=== PATIENT | female | born 1940 | race American Indian/Alaskan Native ===

== ENCOUNTER 2017-08-19 13:32 | Observation (INO) | payer MEDICARE, OTHER ==
--- NOTE | 2017-08-19 14:04 | ED PDOC ---
Arrival/HPI - General Chief Complaint: Chest Pain Time Seen by Provider: 08/19/17 13:42 Historian: Patient - History of Present Illness Narrative History of Present Illness (Text): 08/19/17 14:04 A 77 year old female, whose past medical history includes blood clots (on Coumadin) and left hip replacement two months ago, presents to the emergency department complaining of chest pain for a week. Patient reports stabbing pain. Notes some palpitations at night, shortness of breath for the past couple of days and right leg pain. Patient noted to have an US done on 07/29/17, that was negative for DVT and reports similar pain. Patient denies any other complaints at this time. PMD: Dr. Jeffries Rocket Motor Mechanic: Dr. Brown Time/Duration: 1 week, < week Symptom Onset: Sudden Symptom Course: Unchanged Quality: Stabbing Activities at Onset: Rest Context: Home Past Medical History - Provider Review Nursing Documentation Reviewed: Yes - Infectious Disease Hx of Infectious Diseases: None - Cardiac Hx Atrial Fibrillation: Yes - Pulmonary Hx Pulmonary Embolism: Yes - Neurological Other/Comment: Fibromyalgia - Hematological/Oncological Hx Blood Transfusions: No Hx Blood Transfusion Reaction: No - Musculoskeletal/Rheumatological Hx Musculoskeletal Disorders: Yes (FIBROMYALGIA-LEG PAINS WHEN WALKING) Hx Arthritis: Yes Other/Comment: Sciatica - Gastrointestinal Other/Comment: bleeding ulcers x 7 last one 12 yrs ago multiple blood transfusions - Psychiatric Hx Substance Use: No - Surgical History Hx Orthopedic Surgery: Yes (Left Hip replacement) - Anesthesia Hx Anesthesia Reactions: No Hx Malignant Hyperthermia: No - Suicidal Assessment Feels Threatened In Home Enviroment: No Family/Social History - Physician Review Nursing Documentation Reviewed: Yes Family/Social History: No Known Family HX Smoking Status: Never Smoked Hx Alcohol Use: No Hx Substance Use: No Hx Substance Use Treatment: No Allergies/Home Meds Allergies/Adverse Reactions: Allergies meperidine Allergy (Verified 08/19/17 13:41) CARDIAC ARREST Home Medications: Home Meds Medication Instructions Recorded Confirmed Warfarin [Coumadin] 7 mg PO DAILY 08/19/17 08/19/17 Review of Systems - Physician Review All systems were reviewed & negative as marked: Yes - Review of Systems Respiratory: SOB Cardiovascular: Chest Pain, Palpitations Musculoskeletal: Other (R leg pain) Physical Exam Vital Signs Reviewed: Yes Vital Signs Temp Pulse Resp BP Pulse Ox 08/19/17 16:01 64 18 100/60 100 08/19/17 13:45 97.7 F 73 16 112/63 96 Temperature: Afebrile Blood Pressure: Normal Pulse: Regular Respiratory Rate: Normal Appearance: Positive for: Well-Appearing, Non-Toxic, Comfortable Pain Distress: None Mental Status: Positive for: Alert and Oriented X 3 - Systems Exam Head: Present: Atraumatic, Normocephalic Pupils: Present: PERRL Extroacular Muscles: Present: EOMI Conjunctiva: Present: Normal Mouth: Present: Moist Mucous Membranes Neck: Present: Normal Range of Motion Respiratory/Chest: Present: Clear to Auscultation, Good Air Exchange. No: Respiratory Distress, Accessory Muscle Use Cardiovascular: Present: Regular Rate and Rhythm, Normal S1, S2. No: Murmurs Abdomen: Present: Normal Bowel Sounds. No: Tenderness, Distention, Peritoneal Signs Back: Present: Normal Inspection Upper Extremity: Present: Normal Inspection. No: Cyanosis, Edema Lower Extremity: Present: Normal Inspection. No: Edema Neurological: Present: GCS=15, CN II-XII Intact, Speech Normal Skin: Present: Warm, Dry, Normal Color. No: Rashes Psychiatric: Present: Alert, Oriented x 3, Normal Insight, Normal Concentration Medical Decision Making ED Course and Treatment: 08/19/17 14:02 Impression: A 77 year old female with chest pain, shortness of breath and palpitations. Plan: -- EKG -- chest xray -- labs -- Urinalysis -- Reassess and disposition Prior Visits: Notes and results from previous visits were reviewed. Patient was last seen in the emergency department on 12/02/15 for evaluation of chest pain. Progress Notes: EKG: Ordered, reviewed, and independently interpreted the EKG. Rate : 74 BPM Rhythm : NSR Interpretation : incomplete right bundle branch block, no change from previous EKG Patient declines Aspirin due to bleeding ulcers. 08/19/17 14:57 chest xray: Creator : Livan Alexandra MD IMPRESSION: No active disease. 08/19/17 16:42 pt with atypical pain, however previous cath shows mild cad, and os stenosis. discussed with dr singletary. accepts for obs. - Lab Interpretations Lab Results: 08/19/17 14:20 08/19/17 14:20 Lab Results 08/19/17 14:20: Sodium 137, Potassium 4.3, Chloride 97 L, Carbon Dioxide 31, Anion Gap 13, BUN 22 H, Creatinine 1.3 H, Est GFR ( Amer) 48, Est GFR ( Non-Af Amer) 40, Random Glucose 111 H, Calcium 9.8, Magnesium 2.0, Total Bilirubin 0.6, AST 26, ALT 30, Alkaline Phosphatase 102, Lactate Dehydrogenase 459, Total Creatine Kinase 73, Troponin I < 0.01, Total Protein 7.4, Albumin 4.0 , Globulin 3.5, Albumin/Globulin Ratio 1.2 08/19/17 14:20: Urine Color Light yellow, Urine Appearance Clear, Urine pH 6.5, Ur Specific [place] 1.015, Urine Protein Negative, Urine Glucose (UA) Negative, Urine Ketones Negative, Urine Blood Negative, Urine Nitrate Negative, Urine Bilirubin Negative, Urine Urobilinogen 0.2, Ur Leukocyte Esterase Negative 08/19/17 14:20: PT 30.4 H, INR 2.73 H, APTT 35.9 08/19/17 14:20: WBC 4.3 L, RBC 3.89, Hgb 9.4 L, Hct 30.2 L, MCV 77.6 L, MCH 24.2 L, MCHC 31.1, RDW 16.9 H, Plt Count 259, MPV 9.4, Gran % 53.0, Lymph % ( Auto) 31.0, [place] % (Auto) 9.0 H, Eos % (Auto) 6.5 H, Baso % (Auto) 0.5, Gran # 2.29, Lymph # 1.3, [place] # 0.4, Eos # 0.3, Baso # 0.02 I have reviewed the lab results: Yes - RAD Interpretation Radiology Orders: 08/19/17 13:55 CHEST PORTABLE [RAD] Stat 08/19/17 14:48 DUPLEX LOWER EXTRM VEIN BILAT [US] Stat - EKG Interpretation Interpreted by ED Physician: Yes Type: 12 lead EKG - Scribe Statement The provider has reviewed the documentation as recorded by the Taniaibjoes Lozada Provider Scribe Attestation: All medical record entries made by the Scribe were at my direction and personally dictated by me. I have reviewed the chart and agree that the record accurately reflects my personal performance of the history, physical exam, medical decision making, and the department course for this patient. I have also personally directed, reviewed, and agree with the discharge instructions and disposition. Disposition/Present on Arrival - Present on Arrival Any Indicators Present on Arrival: No History of DVT/PE: No History of Uncontrolled Diabetes: No Urinary Catheter: No History of Decub. Ulcer: No History Surgical Site Infection Following: None - Disposition Have Diagnosis and Disposition been Completed?: Yes Diagnosis: Chest pain Disposition: HOSPITALIZED Disposition Time: 16:43 Condition: STABLE Discharge Instructions (ExitCare): Chest Pain (ED) Referrals: Meet Jeffries MD [Primary Care Provider] - Follow up with primary Forms: [employer] ([place])
[2017-08-19 14:36] LABS: BASO # 0.02 K/mm3 (0.0-2.0); BASO % 0.5 % (0.0-3.0); EOS # 0.3 (0.0-0.7); EOS % 6.5 % (1.5-5.0); GRAN # 2.29 (1.4-6.5); HEMATOCRIT 30.2 % (36.0-48.0); LYMPH # 1.3 (1.2-3.4); MEAN CELL VOLUME 77.6 fl (80.0-105.0); MEAN CORPUSCULAR HEMOGLOBIN 24.2 pg (25.0-35.0); MEAN CORPUSCULAR HGB CONC 31.1 g/dl (31.0-37.0); MEAN PLATELET VOLUME 9.4 fl (7.0-11.0); MONO # 0.4 (0.1-0.6); RED CELL DISTRIBUTION WIDTH 16.9 % (11.5-14.5); WHITE BLOOD COUNT 4.3 10^3/ul (4.5-11.0)
[2017-08-19 14:37] LABS: PH,URINE 6.5 (4.7-8.0); URINE BILIRUBIN NEGATIVE (NEGATIVE); URINE BLOOD NEGATIVE (NEGATIVE); URINE GLUCOSE (UA) NEGATIVE (NEGATIVE); URINE KETONE NEGATIVE (NEGATIVE); URINE LEUKOCYTE ESTERASE NEGATIVE Leu/uL (NEGATIVE); URINE PROTEIN NEGATIVE mg/dL (<30 mg/dL); URINE UROBILINOGEN 0.2 E.U./dL (<1 E.U./dL)
[2017-08-19 14:40] LABS: ALB/GLOB RATIO 1.2 (1.1-1.8); ALKALINE PHOSPHATASE 102 U/L (38-126); ALT/SGPT 30 U/L (7-56); AST/SGOT 26 U/L (14-36); BILIRUBIN,TOTAL 0.6 mg/dL (0.2-1.3); BLOOD UREA NITROGEN 22 mg/dL (7-21); CALCIUM 9.8 mg/dL (8.4-10.5); CARBON DIOXIDE 31 mmol/L (21-33); CHLORIDE 97 mmol/L (98-107); GFR AFRICAN-AMERICAN 48; GLUCOSE,RANDOM 111 mg/dL (70-110); POTASSIUM 4.3 mmol/L (3.6-5.0); SODIUM 137 mmol/L (132-148); TOTAL PROTEIN 7.4 g/dL (5.8-8.3); URINE APPEARANCE CLEAR (CLEAR); URINE COLOR LIGHT YELLOW (YELLOW)
[2017-08-19 14:43] LABS: INR 2.73 (0.93-1.08)
[2017-08-19 14:44] LABS: PARTIAL THROMBOPLASTIN TIME 35.9 Seconds (25.1-36.5)
[2017-08-19 14:52] LABS: TROPONIN I < 0.01 ng/mL
--- NOTE | 2017-08-19 14:56 | RAD ---
HISTORY: cp COMPARISON: 12/02/2015 FINDINGS: LUNGS: No active pulmonary disease. PLEURA: Nonspecific elevation of right hemidiaphragm. No pleural effusion. No pneumothorax. CARDIOVASCULAR: Normal. OSSEOUS STRUCTURES: No significant abnormalities. VISUALIZED UPPER ABDOMEN: Normal. OTHER FINDINGS: None. IMPRESSION: No active disease.
[2017-08-19 15:51] VITALS: BMI 29.6
--- NOTE | 2017-08-19 17:17 | US ---
HISTORY: Leg pain and swelling. Evaluate for DVT PHYSICIAN(S): Livan Stauffer MD. TECHNIQUE: Duplex sonography and color-flow Doppler with graded compression were used to evaluate the deep venous systems of both lower extremities. FINDINGS: The visualized deep venous systems of both lower extremities are sonographically normal and compressible. Normal wave forms and augmentation are seen. There is no sonographic evidence for deep venous thrombosis in the visualized segments of both lower extremities. There is a 1.1 x 3.8 cm fluid collection a right popliteal fossa, consistent with a Owens cyst. IMPRESSION: No sonographic evidence for deep venous thrombosis in the visualized segments of both lower extremities.
[2017-08-19 18:27] VITALS: O2SAT 98
[2017-08-19] MEDS: Metoprolol Succinate 25 mg XL Tab PO SCH ×2 (18:39→18:44)
[2017-08-19] MEDS: Oxycodone/Acetaminophen 5/325 mg Tab PO PRN (19:04)
[2017-08-19 21:44] LABS: CHOLESTEROL 141 mg/dL (130-200)
[2017-08-19 21:56] LABS: TROPONIN I < 0.01 ng/mL
--- NOTE | 2017-08-20 04:13 | HP ---
HISTORY OF PRESENT ILLNESS: The patient is a 77-year-old, known to me from previous admission, came to emergency room because of increasing intermittent chest pain going on for a few days, got worse yesterday, associated with some dizziness and shortness of breath. Patient states that chest pain is stabbing with some palpitation and shortness of breath although it has been going on for almost more than a week and she did have right leg pain. Patient has bilateral leg Dopplers done on 07/29 and was negative. PAST MEDICAL HISTORY: Significant for, 1. Hypotension. 2. History of DVT. 3. History of paroxysmal AFib, on anticoagulation. 4. Hypertension. 5. Fibromyalgia. 6. Neuropathy. 7. History of congestive heart failure. 8. History of rheumatic fever in remote past. 9. Status post cardiac cath and had blockages but was not stented. ALLERGIES: SHE IS ALLERGIC TO MEPERIDINE. SOCIAL HISTORY: She lives with her daughter. Denies smoking, drinking, or alcohol use. a couple of years ago. MEDICATIONS AT HOME: She is on Coumadin 7 mg daily. REVIEW OF SYSTEMS: Significant for chest pain associated with palpitation and shortness of breath. PHYSICAL EXAMINATION: GENERAL: The patient is awake, alert, oriented, communicative. VITAL SIGNS: She is afebrile, pulse 64, respirations 18, blood pressure 100/60. LUNGS: Bilaterally fair airflow. No rhonchi or crackle. HEART: S1 and S2 audible. Irregular, rate controlled. ABDOMEN: Soft, nontender, no rebound, no guarding. NEUROLOGICALLY: The patient is awake, alert, oriented, communicative. LABORATORY DATA: WBC is 4.3, hemoglobin 9.4, hematocrit 30.2, platelets of 259. PT 13.4, INR 2.73. Chemistry: Sodium 137, potassium 4.3, chloride 97, CO2 of 31, BUN 22, creatinine 1.3, blood sugar 111. LFTs are within normal limits. Urinalysis is unremarkable. Bilateral leg Doppler done today is negative for DVT. X-ray, chest, no active disease. ASSESSMENT AND PLAN: 1. Chest pain, rule out underlying coronary artery disease. 2. Paroxysmal atrial fibrillation. 3. Hypertension. 4. Hyperlipidemia. PLAN: Start the patient on small dose of beta bonnie. She is currently on Coumadin, we will continue that. We will follow up cardiac enzymes. Dr. Brown or Dr. Lawson to evaluate the patient. We will follow up lipid profile in the a.m. We will see the patient in a.m. Angela Hernandez MD
[2017-08-20 06:59] LABS: FREE T4 1.2 ng/dL (0.78-2.19)
[2017-08-20 07:13] LABS: THYROID STIMULATING HORMONE 0.91 mIU/mL (0.46-4.68)
[2017-08-20 07:44] LABS: ALB/GLOB RATIO 1.2 (1.1-1.8); BILIRUBIN,TOTAL 0.4 mg/dL (0.2-1.3); CALCIUM 9.3 mg/dL (8.4-10.5); POTASSIUM 4.1 mmol/L (3.6-5.0); TOTAL PROTEIN 6.8 g/dL (5.8-8.3)
[2017-08-20] MEDS: Metoprolol Succinate 25 mg XL Tab PO SCH (08:13)
[2017-08-20] MEDS: Oxycodone/Acetaminophen 5/325 mg Tab PO PRN (08:55)
--- NOTE | 2017-08-20 09:43 | CARD ---
APPROVED REPORT EKG Measurement Heart [id number] <Conclusion> Normal sinus rhythm Incomplete right bundle branch block Minimal voltage criteria for LVH, may be normal variant NSSTW changes No change
[2017-08-20 12:35] VITALS: RESP 20
--- NOTE | 2017-08-20 12:47 | CARD ---
APPROVED REPORT EKG Measurement Heart [id number] <Conclusion> Normal sinus rhythm RVCD LVH by voltage No change
[2017-08-20] MEDS ORDERED: Bupivacaine 0.25% Inj(30mL) IJ ONE (14:31)
[2017-08-20] MEDS ORDERED: MethylPREDNISolone Depo 80 mg/ml (5 ml) Inj INJ ONE (14:32)
--- NOTE | 2017-08-20 15:26 | RAD ---
PROCEDURE: Right Knee Radiographs. HISTORY: pain rt knee COMPARISON: None. FINDINGS: BONES: No fracture. JOINTS: Tricompartmental narrowing with degenerative spurring JOINT EFFUSION: None. OTHER FINDINGS: None. IMPRESSION: No demonstrated fracture or dislocation. Tricompartmental degenerative changes.
--- NOTE | 2017-08-20 17:40 | CON ---
DATE: 08/20/2017 INDICATIONS: Chest pain. HISTORY OF PRESENT ILLNESS: This is a 77-year-old woman known to me with admission yesterday through the Emergency Room when she complained of a stabbing type chest pain occurring on and off several days and worse yesterday. It was associated with shortness of breath and some palpitations. She has recently undergone left total hip replacement. She was recently found to have a Owens's cyst in the right knee. She is undergoing evaluation for this. She has developed difficulty walking because of pain in the right leg and recent left hip surgery. There is no orthopnea, PND, syncope, presyncope, lightheadedness, dizziness, vertigo, fever, chills, cough, sputum production, hemoptysis, abdominal pain, nausea, vomiting, diarrhea, constipation or melena. PAST MEDICAL HISTORY: Notable for coronary artery disease. She underwent cardiac catheterization most recently in 12/2015. At that time, she had a severe lesion in the ostium of the second diagonal branch. This was treated medically. She had LV ejection fraction of about 50% and mild diffuse coronary artery disease elsewhere. She has a history of paroxysmal atrial fibrillation and DVT. She is on chronic Coumadin therapy. She has a history of hypertension, gallbladder surgery, peripheral neuropathy, fibromyalgia, and PAD. MEDICATIONS: At the time of admission, her medications include warfarin 7 mg daily. ALLERGIES: SHE HAS AN ALLERGY TO DEMEROL. SOCIAL HISTORY: She lives at home. She ambulates with a cane currently. She is undergoing physical therapy. She does not smoke. She does not drink alcohol significantly. FAMILY HISTORY: Noncontributory. REVIEW OF SYSTEMS: A 10-point review of systems, otherwise, unremarkable except as noted above. PHYSICAL EXAMINATION: GENERAL: She is a well-developed woman, lying in bed on Telemetry, in no acute distress. VITAL SIGNS: Notable for sinus rhythm at 75 beats per minute. She is afebrile. Blood pressure 99/58 to 135/73, respirations 18 to 19, and O2 sat 98% on room air. HEENT: Reveals no neck vein distention, thyromegaly or carotid bruits. Mucous membranes are moist. Conjunctivae are pink. NECK: Supple. LUNG: Lung haynes clear. HEART: Revealed normal first and second heart sounds. There is a soft systolic murmur along the left sternal border. ABDOMEN: Soft. Bowel sounds present. No mass, organomegaly, tenderness, rebound or guarding. No CVA tenderness. No palpable abdominal aortic aneurysm. EXTREMITIES: Revealed no cyanosis, clubbing or edema. NEUROLOGIC: She is awake, alert, and oriented. SKIN: Warm and dry. No rashes or cellulitis. PSYCHIATRIC: Normal as to mood and affect. LABORATORY DATA: EKG demonstrated regular sinus rhythm, poor R-wave progression, right ventricular conduction delay. No acute changes. No change from her previous EKG. A chest x-ray revealed no active disease. Extremity ultrasound revealed no DVT. White count 4300, hemoglobin 9.4, hematocrit 30.2, and platelet count normal. INR 2.73, and PTT 35.9. Electrolytes, BUN, creatinine, and blood sugar unremarkable, creatinine today 1.2 and magnesium 2.0. LFTs unremarkable. CK 73. Three troponins are negative. Total cholesterol 141, LDL 60, and triglycerides 149. Free T4 and TSH are normal. Urinalysis is unremarkable. IMPRESSION AND PLAN: Juany Corrigan is a 77-year-old woman complaining of a stabbing type chest pain with known coronary artery disease as described in the 12/2015 cardiac catheterization report including a severe lesion in a second diagonal branch, this was treated medically. The troponins are negative. The first EKG was unchanged. I will repeat an EKG this morning. She will having an orthopedic evaluation for the Owens's cyst and her status post left total hip replacement status. If there is no further chest pain, we can consider early discharge with plans for an outpatient nuclear stress test to be arranged in the very near future. If chest pain continues, we might consider direct cardiac catheterization. She has been started on metoprolol and aspirin. Her INR will be monitored. Warfarin will be continued. She can be out of bed. I will follow along with you. I will make additional recommendations based on her clinical course. Luis Manuel Brown MD MTDD
[2017-08-20 17:46] VITALS: BP 155/73; PULSE 78; TEMP 98
--- NOTE | 2017-08-21 01:28 | CON ---
DATE: 08/20/2017 REASON FOR CONSULTATION: Right knee pain. HISTORY OF PRESENT ILLNESS: This is a 77-year-old female, who came in with a history of prior right knee arthritis who was admitted to the hospital with admitting diagnosis of chest pain. Patient subsequently complained of right knee pain. She was getting physical therapy for a left total hip replacement and developed some increasing pain in the right knee. She denies any history of trauma. She states that she previously had a cortisone injection in May of this year which did give her some relief. PHYSICAL EXAMINATION GENERAL: This is a female in no apparent distress. She is awake, alert, and oriented x3 EXTREMITIES: Evaluation of right lower extremity shows no obvious deformity. Evaluation of right knee shows no obvious swelling. She does have some posterior joint line tenderness to palpation. She also has some medial joint line tenderness to palpation. Her thigh and calf are soft and nontender. She is tolerating active range of motion from about 0-100 degrees. She is grossly stable with varus valgus stress. Her thigh and calf are soft and nontender. X-rays of the right knee show no obvious fractures or dislocations, but some degenerative changes, these are non-weight bearing views. She also had an ultrasound in the right lower extremity which was consistent with 1 x 3.8 cm popliteal cyst. No evidence of DVT was appreciated. IMPRESSION: Right knee arthritis. PLAN: At this point, we discussed the treatment options. We are going to try another steroid injection to see if this helps to relieve her pain. Risks and benefits were discussed and she wants to proceed. The right knee was prepped sterilely and approximately 40 mg of Depo-Medrol with 2 ml of Marcaine was injected. She tolerated the procedure well. At this time, the plan is for her to be discharged and she can followup as an outpatient in the next 2 weeks'. Kevin Porter MD
--- NOTE | 2017-08-21 14:53 | DS ---
HISTORY OF PRESENT ILLNESS: The patient is a 77-year-old, seen and examined, no more chest pain, no shortness of breath. Does complain of right knee pain, radiating to right upper ramos. The patient recently had left hip replacement. PHYSICAL EXAMINATION: GENERAL: She is awake, alert, oriented, and communicative. VITAL SIGNS: She is afebrile, pulse 88, respirations 20, blood pressure 110/69. LUNGS: Bilateral fair airflow. No rhonchi or crackles. HEART: S1 and S2 audible. ABDOMEN: Soft and nontender. No rebound. No guarding. NEUROLOGICAL: The patient is awake, alert, oriented, able to communicate. LABORATORY DATA: Sodium 137, potassium 4.1, chloride 100, CO2 of 30, BUN 23, creatinine 1.2, blood sugar 121. Hemoglobin A1c is 6.4. Urinalysis is unremarkable. X-ray of the knee shows no fracture or dislocation, tricompartmental degenerative changes. ASSESSMENT: 1. Noncardiac chest pain. 2. Right knee Owens cyst. 3. History of deep vein thrombosis. PLAN: The patient is being seen by Dr. Porter, has steroid injection given, encouraged ambulation. The patient is stable, ambulatory. She can be discharged and she can follow up with Dr. Brown as an outpatient. At this point, there is no evidence of acute coronary ischemia. Her 3 troponins were negative. Angela Hernandez MD
== END 2017-08-20 19:45 | disposition home or self-care (01) ==
LOC: ED 13:32 → ERH 16:30 → 2RSO 18:19
PROVIDERS: ADMIT Internal Medicine; ATTEND Internal Medicine
DX: R07.9 Chest pain, unspecified (principal); I48.0 Paroxysmal atrial fibrillation; I11.0 Hypertensive heart disease with heart failure; I50.9 Heart failure, unspecified; M17.11 Unilateral primary osteoarthritis, right knee; E78.5 Hyperlipidemia, unspecified; I25.10 Atherosclerotic heart disease of native coronary artery without angina pectoris; M79.7 Fibromyalgia; G62.9 Polyneuropathy, unspecified; Z86.718 Personal history of other venous thrombosis and embolism; Z96.642 Presence of left artificial hip joint; Z79.01 Long term (current) use of anticoagulants

== ENCOUNTER 2018-02-21 15:03 | Observation (INO) | payer MEDICARE, OTHER ==
--- NOTE | 2018-02-21 16:17 | ED PDOC ---
Arrival/HPI - General Chief Complaint: Chest Pain Time Seen by Provider: 02/21/18 15:30 Historian: Patient - History of Present Illness Narrative History of Present Illness (Text): 02/21/18 15:37 77 year old male, with past medical history of CAD, presents to the Emergency department complaining of chest pain since 1 o' clock this afternoon. Patient informs pain began yesterday and has worsened today prompting her to visit the Emergency. Patient cannot characterize the pain but states that it radiates to her throat and returns back to her chest. Patient denies any fever, chills, nausea, vomiting, diarrhea, abdominal pain, shortness of breath or any other complaints. PMD: Dr. Jeffries Account Service Representative: Dr. Brown Time/Duration: 24 hours Symptom Onset: Gradual Symptom Course: Unchanged Quality: Aching Activities at Onset: Light Context: Home Past Medical History - Provider Review Nursing Documentation Reviewed: Yes - Infectious Disease Hx of Infectious Diseases: None - Cardiac Hx Cardiac Disorders: Yes - Pulmonary Hx Pulmonary Embolism: Yes - Neurological Other/Comment: Fibromyalgia - Hematological/Oncological Hx Blood Transfusions: No Hx Blood Transfusion Reaction: No - Musculoskeletal/Rheumatological Hx Falls: No - Gastrointestinal Other/Comment: bleeding ulcers x 7 last one 12 yrs ago multiple blood transfusions - Psychiatric Hx Emotional Abuse: No Hx Physical Abuse: No Hx Substance Use: No - Surgical History Hx Orthopedic Surgery: Yes (Left Hip replacement) - Anesthesia Hx Anesthesia Reactions: No Hx Malignant Hyperthermia: No - Suicidal Assessment Feels Threatened In Home Enviroment: No Family/Social History - Physician Review Nursing Documentation Reviewed: Yes Family/Social History: No Known Family HX Smoking Status: Never Smoked Hx Alcohol Use: No Hx Substance Use: No Hx Substance Use Treatment: No Allergies/Home Meds Allergies/Adverse Reactions: Allergies meperidine Allergy (Verified 08/19/17 13:41) CARDIAC ARREST primidone Allergy (Verified 02/21/18 15:32) ANAPHYLAXIS Home Medications: Home Meds Medication Instructions Recorded Confirmed Warfarin [Coumadin] 7 mg PO DAILY 08/19/17 08/19/17 Review of Systems - Physician Review All systems were reviewed & negative as marked: Yes - Review of Systems Constitutional: Normal. absent: Fevers Eyes: Normal ENT: Normal Respiratory: Normal. absent: SOB Cardiovascular: Chest Pain Gastrointestinal: Normal. absent: Abdominal Pain, Diarrhea, Nausea, Vomiting Genitourinary Female: Normal Musculoskeletal: Normal Skin: Normal Neurological: Normal Endocrine: Normal Hemo/Lymphatic: Normal Psychiatric: Normal Physical Exam Vital Signs Reviewed: Yes Vital Signs Temp Pulse Resp BP Pulse Ox 02/21/18 15:15 98.2 F 89 18 124/69 97 Temperature: Afebrile Blood Pressure: Normal Pulse: Regular Respiratory Rate: Normal Appearance: Positive for: Well-Appearing, Non-Toxic, Comfortable Pain Distress: None Mental Status: Positive for: Alert and Oriented X 3 - Systems Exam Head: Present: Atraumatic, Normocephalic Pupils: Present: PERRL Extroacular Muscles: Present: EOMI Conjunctiva: Present: Normal Mouth: Present: Moist Mucous Membranes Neck: Present: Normal Range of Motion Respiratory/Chest: Present: Clear to Auscultation, Good Air Exchange. No: Respiratory Distress, Accessory Muscle Use Cardiovascular: Present: Regular Rate and Rhythm, Normal S1, S2. No: Murmurs Abdomen: No: Tenderness, Distention, Peritoneal Signs Back: Present: Normal Inspection Upper Extremity: Present: Normal Inspection. No: Cyanosis, Edema Lower Extremity: Present: Normal Inspection. No: Edema Neurological: Present: GCS=15, CN II-XII Intact, Speech Normal Skin: Present: Warm, Dry, Normal Color. No: Rashes Psychiatric: Present: Alert, Oriented x 3, Normal Insight, Normal Concentration Medical Decision Making ED Course and Treatment: 02/21/18 15:37 Impression: 77 year old female presents to the Emergency department for chest pain. Plan: -- EKG -- Chest X-ray -- Labs -- Urinalysis -- US lower Extremity -- Reassess and disposition Prior Visits: Notes and results from previous visits were reviewed. Progress Notes: - RAD Interpretation Radiology Orders: 02/21/18 15:37 CHEST PORTABLE [RAD] Stat DUPLEX LOWER EXTRM VEIN BILAT [US] Stat [employer] Sheets Supervisor: Radiologist - EKG Interpretation Interpreted by ED Physician: Yes Type: 12 lead EKG - Scribe Statement The provider has reviewed the documentation as recorded by the Scribe Norman Remy. All medical record entries made by the Scribe were at my direction and personally dictated by me. I have reviewed the chart and agree that the record accurately reflects my personal performance of the history, physical exam, medical decision making, and the department course for this patient. I have also personally directed, reviewed, and agree with the discharge instructions and disposition. Disposition/Present on Arrival - Present on Arrival History of DVT/PE: No History of Uncontrolled Diabetes: No Urinary Catheter: No History of Decub. Ulcer: No History Surgical Site Infection Following: None - Disposition Forms: Next Caller ([employer])
--- NOTE | 2018-02-21 16:18 | RAD ---
HISTORY: Chest pain COMPARISON: 08/19/2017. FINDINGS: LUNGS: The lungs are well inflated and clear. PLEURA: No significant pleural effusion identified, no pneumothorax apparent. CARDIOVASCULAR: Normal. OSSEOUS STRUCTURES: No significant abnormalities. VISUALIZED UPPER ABDOMEN: Normal. OTHER FINDINGS: There is chronic elevation of the right hemidiaphragm. IMPRESSION: No active pulmonary disease.
[2018-02-21 16:19] LABS: BASO # 0.02 K/mm3 (0.0-2.0); BASO % 0.5 % (0.0-3.0); EOS # 0.3 (0.0-0.7); GRAN # 1.69 (1.4-6.5); GRAN % 40.9 % (50.0-68.0); HEMOGLOBIN 9.5 g/dL (12.0-16.0); LYMPH # 1.7 (1.2-3.4); LYMPH % 41.5 % (22.0-35.0); MEAN CELL VOLUME 78.5 fl (80.0-105.0); MEAN CORPUSCULAR HEMOGLOBIN 24.9 pg (25.0-35.0); MEAN CORPUSCULAR HGB CONC 31.8 g/dl (31.0-37.0); MEAN PLATELET VOLUME 9.8 fl (7.0-11.0); MONO # 0.4 (0.1-0.6); MONO % 10.1 % (1.0-6.0); RBC 3.81 10^6/uL (3.5-6.1); WHITE BLOOD COUNT 4.1 10^3/ul (4.5-11.0)
[2018-02-21 16:27] LABS: ALB/GLOB RATIO 1.2 (1.1-1.8); ALT/SGPT 28 U/L (7-56); AST/SGOT 32 U/L (14-36); BLOOD UREA NITROGEN 28 mg/dL (7-21); CALCIUM 9.6 mg/dL (8.4-10.5); GFR AFRICAN-AMERICAN 41; GFR NON-AFRICAN AMERICAN 34
[2018-02-21 16:39] LABS: B-TYPE NATRIURETIC PEPTIDE 182 pg/mL (0-450); TROPONIN I < 0.01 ng/mL
[2018-02-21 16:40] LABS: D DIMER < 200 ng/mL (0-243); INR 2.68 (0.93-1.08); PARTIAL THROMBOPLASTIN TIME 37.5 Seconds (25.1-36.5); PROTHROMBIN TIME 31.2 SECONDS (9.4-12.5)
[2018-02-21 19:30] LABS: PH,URINE 6.5 (4.7-8.0); URINE BILIRUBIN NEGATIVE (NEGATIVE); URINE BLOOD NEGATIVE (NEGATIVE); URINE GLUCOSE (UA) NEGATIVE (NEGATIVE); URINE LEUKOCYTE ESTERASE NEGATIVE Leu/uL (NEGATIVE); URINE PROTEIN NEGATIVE mg/dL (<30 mg/dL); URINE UROBILINOGEN 0.2 E.U./dL (<1 E.U./dL)
[2018-02-21 19:31] LABS: URINE APPEARANCE CLEAR (CLEAR); URINE COLOR LIGHT YELLOW (YELLOW)
--- NOTE | 2018-02-21 19:51 | US ---
HISTORY: Leg pain and swelling. Evaluate for DVT PHYSICIAN(S): Livan Stauffer MD. TECHNIQUE: Duplex sonography and color-flow Doppler with graded compression were used to evaluate the deep venous systems of both lower extremities. FINDINGS: The visualized deep venous systems of both lower extremities are sonographically normal and compressible. Normal wave forms and augmentation are seen. There is no sonographic evidence for deep venous thrombosis in the visualized segments of both lower extremities. IMPRESSION: No sonographic evidence for deep venous thrombosis in the visualized segments of both lower extremities.
--- NOTE | 2018-02-21 22:32 | CARD ---
APPROVED REPORT EKG Measurement Heart [id number] CT [id number] [id number] <Conclusion> Sinus rhythm with occasional premature ventricular complexes Otherwise normal ECG
[2018-02-21 22:58] VITALS: BMI 29.9
[2018-02-21] MEDS ORDERED: Pneumococcal 23-Valent Vaccine IM ONE (22:58)
[2018-02-22 06:22] VITALS: O2SAT 95
[2018-02-22 06:25] LABS: INR 2.16 (0.93-1.08); PROTHROMBIN TIME 25.2 SECONDS (9.4-12.5)
[2018-02-22 06:41] LABS: ALB/GLOB RATIO 1.2 (1.1-1.8); ALBUMIN 3.9 g/dL (3.0-4.8); ALT/SGPT 15 U/L (7-56); AST/SGOT 34 U/L (14-36); BLOOD UREA NITROGEN 32 mg/dL (7-21); CALCIUM 9.3 mg/dL (8.4-10.5); GFR AFRICAN-AMERICAN 53; GFR NON-AFRICAN AMERICAN 44; HDL CHOLESTEROL 41 mg/dL (29-60)
[2018-02-22 06:47] LABS: LDL CHOLESTEROL 54 mg/dL (0-129); TROPONIN I < 0.01 ng/mL
[2018-02-22 06:57] LABS: FREE T4 1.01 ng/dL (0.78-2.19)
--- NOTE | 2018-02-22 07:47 | HP ---
DATE OF EXAM: 02/21/2018 HISTORY OF PRESENT ILLNESS: Patient is 77 years old, who came to emergency room because of chest pain that started late afternoon. Patient states she was having some chest discomfort off and on, going on for last day or two, got worse today, so she came to emergency room to be evaluated. Complaining of radiation towards her jaw. Denies any nausea or vomiting. No history of fever or chills. No cough or congestion. PAST MEDICAL HISTORY: Her past medical history is significant for: 1. Coronary artery disease. 2. History of rheumatic fever in remote past. 3. History of cardiac cath. 4. Paroxysmal AFib. 5. Hypertension. 6. History of DVT. ALLERGIES: SHE IS ALLERGIC TO MEPERIDINE. SOCIAL HISTORY: She is . She lives with her daughter. Denies smoking, drinking, or alcohol use. MEDICATIONS AT HOME: She is on Coumadin 7 mg daily. REVIEW OF SYSTEMS: Significant for some chest discomfort along with palpitation. PHYSICAL EXAMINATION: GENERAL: She is awake, alert, oriented, communicative. VITAL SIGNS: She is afebrile. Pulse 74, respirations 18, blood pressure 121/61. LUNGS: Bilateral good airflow. No rhonchi or crackle. HEART: S1 and S2 audible, irregular, rate controlled. ABDOMEN: Soft, nontender. No rebound. No guarding. NEUROLOGICAL: The patient is awake, alert, oriented, communicative. LABORATORY DATA: WBC 4.1, hemoglobin 9.5, hematocrit 29, platelet of 206. 31.2, INR 2.68. Chemistry: Sodium 143, potassium 4.3, chloride 100, CO2 of 32, BUN 28, creatinine 1.5, blood sugar of 104, magnesium 2.4. LFTs are within normal limit. Urinalysis is unremarkable. Bilateral leg Doppler negative for DVT. X-ray chest is unremarkable. ASSESSMENT: 1. atrial fibrillation. 2. Chest pain, rule out underlying coronary ischemia. 3. History of paroxysmal atrial fibrillation. 4. Chronic anemia. PLAN: Patient will be admitted on telemetry. I will order stool for Hemoccult and start her on metoprolol. Continue her on Coumadin and Cardiology evaluation by Dr. Brown has been requested. We will request for physical therapy. Follow up her electrolyte. Follow up patient. Angela Hernandez MD [facility] # [id number]
[2018-02-22] MEDS ORDERED: Metoprolol Succinate 25 mg XL Tab PO SCH (08:00)
[2018-02-22 12:18] VITALS: BP 113/62; RESP 20; TEMP 98.3
[2018-02-22 14:33] VITALS: PULSE 88
--- NOTE | 2018-02-22 16:18 | DS ---
HISTORY OF PRESENT ILLNESS: The patient is 77 years old, who was admitted with chest pain radiating towards jaw and neck. Seems to be doing better. No nausea, vomiting. No diarrhea. PHYSICAL EXAMINATION: VITAL SIGNS: She is afebrile, pulse 77, respirations 18, blood pressure 119/69. LUNGS: Bilateral good airflow. No rhonchi or crackle. HEART: S1 and S2 audible. Irregular, rate controlled. ABDOMEN: Soft. Nontender. No rebound. No guarding. NEUROLOGICAL: The patient is awake, alert, oriented, communicative, ambulatory. LABORATORY EXAM: Sodium 140, potassium 4.5, chloride 102, CO2 of 29, BUN 32, creatinine 1.2, blood sugar of 119. LFTs are within normal limit. WBC is 4.1, hemoglobin 9.5, hematocrit 29, platelet of 206. PT 25.2, INR 2.16. Urinalysis is unremarkable. ASSESSMENT: 1. Chest pain. Seems to be noncardiac. Her 2 sets of troponins are negative. The patient had mild dehydration that seems to be improving. Creatinine was 1.5 on admission, is 1.2 today. 2. Chronic atrial fibrillation, on anticoagulation. Seems to be therapeutic. 3. Chronic anemia. 4. Hypertension. 5. Hyperlipidemia. PLAN: The patient is currently stable. We will discuss with landing man. She can have stress test done as outpatient. There is no sign of coronary ischemia at this point. The patient has last catheterization done in 12/2015. At that point, she had severe ostial stenosis of second diagonal branch with mild atherosclerotic disease. Probably, she is going to benefit from cardiac cath that can be electively done as outpatient. Angela Hernandez MD
--- NOTE | 2018-02-22 17:40 | CON ---
DATE: 02/22/2018 INDICATIONS: Chest pain. HISTORY OF PRESENT ILLNESS: This is a 77-year-old woman known to me, admitted through the emergency room when she presented with several hours of chest discomfort, described as an upper chest vague sensation, also felt in the throat, not associated with shortness of breath. When it persisted, she came to the emergency room for evaluation. Subsequently, she was admitted to telemetry. There has been no evidence of acute myocardial infarction with two negative troponins and a benign appearing initial EKG. The symptoms have resolved. She has known coronary artery disease. There was no shortness of breath, orthopnea, PND, syncope, presyncope, lightheadedness, dizziness, vertigo, palpitations, edema, claudication, fever, chills, cough, sputum production, hemoptysis, abdominal pain, nausea, vomiting, diarrhea, constipation or melena. PAST MEDICAL HISTORY: Notable for coronary artery disease. On her last catheterization, she had a severe ostial lesion in the second diagonal branch which was small. Medical therapy was advised. She had diffuse coronary artery disease in other vessels. There is a history of paroxysmal atrial fibrillation, hypertension, DVT, left total hip replacement, gallbladder surgery, fibromyalgia, peripheral neuropathy, PAD, remote peptic ulcer disease with GI bleeding. There is no history of congestive heart failure, myocardial infarction, diabetes, gout. MEDICATIONS: At the time of admission include warfarin. ALLERGIES: SHE NOTES ALLERGIES TO DEMEROL AND PRIMIDONE. SOCIAL HISTORY: She lives at home. She is ambulatory. She does not smoke cigarettes. She does not drink alcohol. FAMILY HISTORY: Noncontributory. REVIEW OF SYSTEMS: A 10-point review of systems is otherwise unremarkable except as noted above. PHYSICAL EXAMINATION GENERAL: She is a well-developed woman, sitting on her bed in telemetry, in no acute distress. VITAL SIGNS: She is in sinus rhythm at 77 beats per minute. She is afebrile. Blood pressure 119/69, respirations 18, O2 sat 95%-98% on room air. HEENT: Reveals no neck vein distention, thyromegaly or carotid bruits. Mucous membranes are moist. Conjunctivae are pink. NECK: Supple. LUNG: Lung haynes clear. HEART: Revealed normal first and second heart sounds without murmur, gallop, rub or click. ABDOMEN: Soft. Bowel sounds present. No mass, organomegaly, tenderness, rebound, guarding, CVA tenderness, palpable abdominal aortic aneurysm. EXTREMITIES: Revealed no cyanosis, clubbing or edema. NEUROLOGIC: She is awake, alert, and oriented. SKIN: Warm and dry. No rash or cellulitis. PSYCHIATRIC: Normal as to mood and affect. LABORATORY AND IMAGING: EKG demonstrates regular sinus rhythm with leftward axis, PVC, nonspecific ST-wave changes, LVH by voltage, no change from a prior EKG. A portable chest x-ray reveals no active pulmonary disease. Lower extremity venous Doppler study reveals no evidence of DVT. White count 4100, hemoglobin 9.5, hematocrit 29.9, and platelet count normal. PT 31.2, repeat 25.2; INR 2.68, repeat 2.16; PTT 37.5. D-dimer less than 200. Electrolytes unremarkable, BUN 32, creatinine 1.2, blood sugar 104 and repeat 119. Magnesium normal. LFTs normal. CK normal. Two troponins normal. BNP 182. Total cholesterol 145, triglycerides 133, LDL 54, HDL 41. T4 and TSH unremarkable. Urinalysis unremarkable. IMPRESSION: Juany Corrigan is a 77-year-old woman with coronary artery disease who presented with somewhat atypical chest pain without evidence of myocardial infarction or EKG changes. She has known coronary artery disease with a severe ostial stenosis of the small second diagonal branch at the time of her last catheterization. PLAN: At this time, I reviewed the data. She can be out of bed and ambulate. If there is no further chest pain, she can be discharged with plans for an outpatient nuclear stress test. I will recommend daily aspirin therapy 81 mg daily and a low dose statin given the known coronary artery disease. She will keep us informed of any additional symptoms. Her INRs are monitored by her primary care physician and her INRs are therapeutic at this time. Luis Manuel Brown MD
== END 2018-02-22 15:55 | disposition home or self-care (01) ==
LOC: ED 15:03 → ERH 17:51 → 2RNO 20:00
PROVIDERS: ADMIT Internal Medicine; ATTEND Internal Medicine
DX: R07.89 Other chest pain (principal); I25.10 Atherosclerotic heart disease of native coronary artery without angina pectoris; E86.0 Dehydration; I48.2 Chronic atrial fibrillation; I48.0 Paroxysmal atrial fibrillation; I10 Essential (primary) hypertension; D64.9 Anemia, unspecified; E78.5 Hyperlipidemia, unspecified; G62.9 Polyneuropathy, unspecified; Z79.01 Long term (current) use of anticoagulants; Z86.711 Personal history of pulmonary embolism; Z86.718 Personal history of other venous thrombosis and embolism; Z96.642 Presence of left artificial hip joint
CPT/HCPCS: 36415; 71045; 80053; 80061; 81003; 82550; 83615; 83735; 83880; 84100; 84439; 84443; 84484; 85025; 85378; 85610; 85730; 93005; 93970; 99284; G0378

== ENCOUNTER → 2018-11-08 | Day surgery (SDC) | payer MEDICARE ==
[2018-11-04 09:39] VITALS: BMI 29.6
[~2018-11-08] MED LIST: Lidocaine 1% Inj (20ml) IJ ONE; Midazolam 2 MG/2 ML VIAL ONE; Sodium Chloride 0.9% 1,000 ML IV SCH
[2018-11-08 15:17] VITALS: O2SAT 98
[2018-11-08 15:54] VITALS: BP 123/67; PULSE 71; RESP 18; TEMP 97.6
--- NOTE | 2018-11-10 23:55 | CON ---
DATE: 11/10/2018 Procedure done on 11/08/2018 at 2 p.m. HISTORY OF PRESENT ILLNESS: The patient had a bone marrow aspiration and biopsy done under general anesthesia in the OR on her right posterior superior iliac spine. The patient was draped and also local anesthesia given with Lidocaine. Aspirate specimen drawn for flow cytometry as well as pathology and cytology. She also had a bone marrow biopsy done which will be reviewed for possible myelodysplastic syndrome, that is the working diagnosis at this point. PLAN: The patient to followup in a week for results of the biopsy. Thank you for the consult. We will follow. Lilliana Han MD
== END | disposition home or self-care (01) ==
LOC: SDS 12:21
PROVIDERS: ATTEND Internal Medicine Hematology & Oncology
DX: D61.818 Other pancytopenia (principal)
CPT/HCPCS: 38222; J2250; J3010; J7030; J7120

== ENCOUNTER 2018-11-22 13:52 | Observation (INO) | payer MEDICARE, OTHER ==
[2018-11-22 13:52] VITALS: BMI 29.6
--- NOTE | 2018-11-22 14:37 | ED PDOC ---
Arrival/HPI - General Chief Complaint: Palpitations Historian: Patient - History of Present Illness Narrative History of Present Illness (Text): 11/22/18 14:37 78 year old female, whose past medical history includes CAD, presents to the emergency department complaining of intermittent chest discomfort and palpitations for the past 3 days. Patient reports the discomfort radiating to her throat and reports shortness of breath at times. 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 Patient denies any recent travel. Patient also reports dizziness and decrease appetite, but denies any fever, chills, nausea, vomiting, diarrhea, urinary symptoms, back pain, neck pain, headache, or any other complaints. PMD: Dr. Jeffries Time/Duration: Other (3 days) Symptom Onset: Gradual Symptom Course: Intermittent Activities at Onset: Light Context: Home Past Medical History - Provider Review Nursing Documentation Reviewed: Yes - Infectious Disease Hx of Infectious Diseases: None - Reproductive Menopause: No - Cardiac Hx Pacemaker: No - Pulmonary Hx Pulmonary Embolism: Yes - Neurological Hx Paralysis: No - Hematological/Oncological Hx Blood Transfusions: No Hx Blood Transfusion Reaction: No - Musculoskeletal/Rheumatological Hx Musculoskeletal Disorders: Yes - Gastrointestinal Other/Comment: bleeding ulcers x 7 last one 12 yrs ago multiple blood transfusions - Psychiatric Hx Emotional Abuse: No Hx Physical Abuse: No Hx Substance Use: No - Surgical History Hx Orthopedic Surgery: Yes (Left Hip replacement) - Anesthesia Hx Anesthesia Reactions: No Hx Malignant Hyperthermia: No - Suicidal Assessment Feels Threatened In Home Enviroment: No Family/Social History - Physician Review Nursing Documentation Reviewed: Yes Family/Social History: No Known Family HX Smoking Status: Never Smoked Hx Alcohol Use: No Hx Substance Use: No Hx Substance Use Treatment: No Allergies/Home Meds Allergies/Adverse Reactions: Allergies meperidine Allergy (Verified 02/21/18 19:22) CARDIAC ARREST primidone Allergy (Verified 02/21/18 19:22) ANAPHYLAXIS Home Medications: Home Meds Medication Instructions Recorded Confirmed Chlorthalidone [Hygroton] 25 mg PO DAILY 11/04/18 11/08/18 Esomeprazole Magnesium [Nexium] 40 mg PO DAILY 11/04/18 11/08/18 Nebivolol [Bystolic] 5 mg PO DAILY 11/04/18 11/08/18 Oxycodone HCl/Acetaminophen 1 tab PO BID PRN 11/04/18 11/08/18 [Acetaminophen-Oxycodone 325 mg-5 mg] Warfarin [Coumadin] 5 mg PO DAILY 11/04/18 11/08/18 tiZANidine [Zanaflex] 4 mg PO DAILY 11/04/18 11/08/18 Review of Systems - Physician Review All systems were reviewed & negative as marked: Yes - Review of Systems Constitutional: absent: Fevers, Other (chills) Respiratory: SOB Cardiovascular: Chest Pain, Palpitations Gastrointestinal: Appetite Changes. absent: Diarrhea, Nausea, Vomiting Genitourinary Female: absent: Dysuria, Frequency, Hematuria Musculoskeletal: absent: Back Pain, Neck Pain Neurological: Dizziness. absent: Headache Physical Exam Vital Signs Reviewed: Yes Vital Signs Temp Pulse Resp BP Pulse Ox 11/22/18 14:15 97.8 F 99 H 18 123/76 99 Temperature: Afebrile Blood Pressure: Normal Pulse: Tachycardic Respiratory Rate: Normal Appearance: Positive for: Well-Appearing, Non-Toxic, Comfortable Pain Distress: None Mental Status: Positive for: Alert and Oriented X 3 - Systems Exam Head: Present: Atraumatic, Normocephalic Pupils: Present: PERRL Extroacular Muscles: Present: EOMI Conjunctiva: Present: Normal Mouth: Present: Moist Mucous Membranes Neck: Present: Normal Range of Motion Respiratory/Chest: Present: Clear to Auscultation, Good Air Exchange. No: Respiratory Distress, Accessory Muscle Use Cardiovascular: Present: Regular Rate and Rhythm, Normal S1, S2. No: Murmurs Abdomen: No: Tenderness, Distention, Peritoneal Signs Back: Present: Normal Inspection Upper Extremity: Present: Normal Inspection. No: Cyanosis, Edema Lower Extremity: Present: Normal Inspection. No: Edema Neurological: Present: GCS=15, CN II-XII Intact, Speech Normal Skin: Present: Warm, Dry, Normal Color. No: Rashes Psychiatric: Present: Alert, Oriented x 3, Normal Insight, Normal Concentration Medical Decision Making ED Course and Treatment: 11/22/18 14:37 Impression: 78 year old female presents complaining of chest discomfort, palpitations, and shortness of breath associated with decrease appetite and dizziness for the past 2 days. Plan: -- EKG -- Labs -- Chest X-ray -- Urinalysis -- Reassess and disposition Prior Visits: Notes and results from previous visits were reviewed. Progress Notes: EKG shows Sinus tachycardia at 106 BPM. Interpreted by me. Chest X-ray Dictator : Jess Tran MD Report Date : 11/22/2018 15:07:19 IMPRESSION: No active pulmonary disease. 11/22/18 15:[address] Hernandez who is aware and agrees with the plan. Accepts patient into her service. - Lab Interpretations I have reviewed the lab results: Yes - RAD Interpretation Finance Mgr: Radiologist - EKG Interpretation Interpreted by ED Physician: Yes Type: 12 lead EKG - Scribe Statement The provider has reviewed the documentation as recorded by the Taniaibe Louise Saleh Provider Scribe Attestation: All medical record entries made by the Scribe were at my direction and personally dictated by me. I have reviewed the chart and agree that the record accurately reflects my personal performance of the history, physical exam, medical decision making, and the department course for this patient. I have also personally directed, reviewed, and agree with the discharge instructions and disposition. Disposition/Present on Arrival - Present on Arrival Any Indicators Present on Arrival: No History of DVT/PE: No History of Uncontrolled Diabetes: No Urinary Catheter: No History of Decub. Ulcer: No History Surgical Site Infection Following: None - Disposition Have Diagnosis and Disposition been Completed?: Yes Diagnosis: Chest pain, Palpitations Disposition: HOSPITALIZED Disposition Time: 15:30 Condition: STABLE
[2018-11-22 14:50] LABS: BASO # 0.01 K/mm3 (0.0-2.0); BASO % 0.2 % (0.0-3.0); EOS # 0.2 (0.0-0.7); EOS % 4.3 % (1.5-5.0); HEMOGLOBIN 11.2 g/dL (12.0-16.0); LYMPH # 1.5 (1.2-3.4); LYMPH % 35.7 % (22.0-35.0); MEAN CELL VOLUME 80.2 fl (80.0-105.0); MEAN CORPUSCULAR HEMOGLOBIN 25.5 pg (25.0-35.0); MEAN CORPUSCULAR HGB CONC 31.8 g/dl (31.0-37.0); MEAN PLATELET VOLUME 9.7 fl (7.0-11.0); MONO # 0.5 (0.1-0.6); RBC 4.39 10^6/uL (3.5-6.1); RED CELL DISTRIBUTION WIDTH 16.9 % (11.5-14.5); WHITE BLOOD COUNT 4.2 10^3/uL (4.5-11.0)
[2018-11-22 14:58] LABS: IRON 81 ug/dL (45-180)
[2018-11-22 15:00] LABS: ALB/GLOB RATIO 1.1 (1.1-1.8); ALBUMIN 4.2 g/dL (3.0-4.8); ALT/SGPT 6 U/L (7-56); AST/SGOT 28 U/L (14-36); BLOOD UREA NITROGEN 28 mg/dL (7-21); CALCIUM 10.2 mg/dL (8.4-10.5); GFR NON-AFRICAN AMERICAN 34; INR 1.23; PARTIAL THROMBOPLASTIN TIME 31.1 Seconds (26.9-38.3); PROTHROMBIN TIME 13.7 SECONDS (9.4-12.5)
[2018-11-22 15:08] LABS: % IRON SATURATION 29 % (20-55); TOTAL IRON BINDING CAPACITY 281 ug/dL (265-497)
--- NOTE | 2018-11-22 15:11 | RAD ---
Date of service: 11/22/2018 HISTORY: chest pain COMPARISON: 02/21/2018. FINDINGS: LUNGS: The lungs are well inflated and clear. There is linear scarring in the lower lobes. No focal consolidation PLEURA: No pleural effusions or pneumothorax. CARDIOVASCULAR: The heart is normal in size. No aortic atherosclerotic calcifications present. OSSEOUS STRUCTURES: Within normal limits for the patient's age. VISUALIZED UPPER ABDOMEN: Normal. OTHER FINDINGS: There is chronic elevation of the right hemidiaphragm. IMPRESSION: No active pulmonary disease.
[2018-11-22 15:13] LABS: B-TYPE NATRIURETIC PEPTIDE 125 pg/mL (0-450); TROPONIN I < 0.01 ng/mL
--- NOTE | 2018-11-22 19:19 | CARD ---
APPROVED REPORT Date of service: 11/22/2018 EKG Measurement Heart [id number] <Conclusion> Sinus tachycardia with occasional premature ventricular complexes Minimal voltage criteria for LVH, may be normal variant Borderline ECG
[2018-11-22] MEDS ORDERED: Oxycodone/Acetaminophen 5/325 mg Tab PO PRN (19:27)
[2018-11-22] MEDS: Metoprolol Succinate 25 mg XL Tab PO SCH (21:54)
[2018-11-22 22:30] LABS: URINE APPEARANCE CLEAR (CLEAR); URINE BILIRUBIN NEGATIVE (NEGATIVE); URINE BLOOD NEGATIVE (NEGATIVE); URINE COLOR YELLOW (YELLOW); URINE GLUCOSE (UA) NEGATIVE (NEGATIVE); URINE LEUKOCYTE ESTERASE TRACE Leu/uL (NEGATIVE); URINE PROTEIN NEGATIVE mg/dL (<30 mg/dL); URINE UROBILINOGEN 0.2 E.U./dL (<1 E.U./dL)
[2018-11-22 22:43] LABS: URINE RBC 0 - 2 /hpf (0-2)
[2018-11-22 22:44] LABS: URINE HYALINE CAST 0 - 2 /hpf
[2018-11-22 22:59] LABS: HDL CHOLESTEROL 52 mg/dL (29-60)
[2018-11-22 23:09] LABS: LDL CHOLESTEROL 88 mg/dL (0-129)
[2018-11-22 23:12] LABS: TROPONIN I < 0.01 ng/mL
--- NOTE | 2018-11-22 23:14 | HP ---
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 She went there to get her IV iron infusion, when she mentioned that she is having chest pain, they referred her to the emergency room for further evaluation. The patient says she has been having intermittent chest discomfort with palpitations off and on for the last three days. Denies any fever or chills. No history of nausea or vomiting. No history of cough or congestion. No history of sick contact. PAST MEDICAL HISTORY: Significant for: 1. Coronary artery disease. 2. History of rheumatic fever in the remote past. 3. History of paroxysmal atrial fibrillation. 4. Hypertension. 5. History of DVT. ALLERGIES: THE PATIENT IS ALLERGIC TO MEPERIDINE. SOCIAL HISTORY: She is a . She lives with her daughter. Denies smoking, drinking, alcohol use. MEDICATIONS AT HOME: She is on tizanidine 4 mg daily, Coumadin 5 mg daily, Percocet as needed, Bystolic 5 mg daily, Nexium 40 mg daily, and chlorthalidone 25 mg daily. PHYSICAL EXAMINATION GENERAL: She is awake and alert, able to communicate. VITAL SIGNS: She is afebrile, pulse 106, respirations 18, blood pressure 115/70. LUNGS: Bilateral fair airflow. No rhonchi or crackles. HEART: S1 and S2 audible. ABDOMEN: Soft, nontender. No rebound, no guarding. NEUROLOGIC: The patient is awake and alert, able to communicate. LABORATORY DATA: WBC 4.2, hemoglobin 11.2, hematocrit 35.2, platelets 214. PT of 13.7, INR of 1.23. Sodium 137, potassium 3.8, chloride 100, CO2 of 29, BUN 28, creatinine 1.5, blood sugar of 134. Iron 81, TIBC 281. LFTs are within normal limits. First set of cardiac enzyme is negative. ASSESSMENT 1. Chest pain and palpitations along with shortness of breath. Rule out underlying coronary ischemia. 2. Hypertension. 3. Paroxysmal atrial fibrillation. 4. Chronic anemia. PLAN: We will start the patient on beta-bonnie. She is already on aspirin 81 daily, and we will give Coumadin 10 mg today. Since her INR is subtherapeutic, get Dr. Lawson's input and request for consult by Dr. Lawson. We will follow three sets of cardiac enzymes. She will be admitted on telemetry. Angela Hernandez MD
[2018-11-23 07:21] LABS: ALBUMIN 3.8 g/dL (3.0-4.8); ALT/SGPT 12 U/L (7-56); AST/SGOT 31 U/L (14-36); BLOOD UREA NITROGEN 28 mg/dL (7-21); CALCIUM 9.6 mg/dL (8.4-10.5); GFR NON-AFRICAN AMERICAN 37; TROPONIN I < 0.01 ng/mL
[2018-11-23 07:27] LABS: FREE T4 1.23 ng/dL (0.78-2.19)
--- NOTE | 2018-11-23 09:36 | CON ---
DATE OF CONSULTATION: 11/23/2018 REQUESTING PHYSICIAN: Dr. Hernandez. REASON FOR CONSULTATION: Chest pain, dyspnea. HISTORY: This is a 78-year-old woman, well-known to me with a history of coronary artery disease and iron-deficiency anemia, who presents to the emergency room complaining of chest and throat discomfort for the past several days. She has also noted intermittent palpitations. She was seen yesterday by her pbx technician and sent to the emergency room because of her symptoms and a resting tachycardia. Upon arrival, her rhythm was sinus tachycardia, and she was chest-pain free. Electrocardiogram showed no acute changes and cardiac enzymes have been negative. She does have known coronary artery disease. Her last catheterization was performed 3 years ago, at which time she was found to have severe ostial diagonal branch lesion as well as mild diffuse disease elsewhere and medical therapy was advised. PAST MEDICAL HISTORY: Her past history is notable for prior left hip replacement as well as remote peptic ulcer disease, which has been inactive. She has also had a history of DVT and pulmonary embolus. She has had paroxysmal atrial fibrillation, hypertension, prior cholecystectomy, and peripheral neuropathy. MEDICATIONS: Her medications at home included warfarin, Bystolic 5 mg daily, chlorthalidone 25 mg daily, Nexium, Percocet, and Zanaflex p.r.n. ALLERGIES: SHE REPORTEDLY HAD A REACTION TO MEPERIDINE IN THE PAST, WHICH CAUSED ANAPHYLAXIS WELL ANAPHYLACTIC REACTION TO PRIMIDONE. SOCIAL HISTORY: She does not smoke or drink. FAMILY HISTORY: Both parents from noncardiac cause. REVIEW OF SYSTEMS: A 10-point review of systems is otherwise unremarkable. PHYSICAL EXAMINATION: GENERAL: She is an elderly woman, who appears comfortable at rest. VITAL SIGNS: Her blood pressure is 124/74 with a pulse of 86 and sinus, respirations are 16. She is afebrile. HEENT: Head, normocephalic and atraumatic. NECK: Supple. No JVD noted. CHEST: Reveals a few scattered rhonchi. HEART: PMI is normal position. There are no pathological murmurs or gallops are audible at this time. GASTROINTESTINAL: The abdomen is soft and nontender with normoactive bowel sounds. EXTREMITIES: No clubbing, cyanosis or edema. SKIN: Warm and dry. PSYCHIATRIC: Normal mood and affect. NEUROLOGICAL: Alert and oriented x3. No gross motor or sensory deficits notable. DIAGNOSTIC DATA: Potassium 4.3, BUN and creatinine are 28 and 1.4. Three sets of cardiac enzymes were negative. Cholesterol 186 with an LDL of 88, HDL 52, and triglycerides 149. TSH 1.38. Electrocardiogram reveals sinus tachycardia with nonspecific abnormalities. Chest x-ray reveals a normal cardiac silhouette with clear lung haynes. IMPRESSION AND PLAN: Chest pain and dyspnea, sounds somewhat suspicious for ischemic symptoms. Her prior catheterization had revealed disease to the stent, one would expect the cause of current level of symptomatology. Given her prior history of deep venous thromboses and pulmonary embolism, a CT angiogram and lower extremity venous duplex should be considered. If these were remarkable, discharge home with outpatient followup and a repeat stress test and echocardiogram can be performed. Thank you for this consultation. We will be happy to follow along through her hospital course. Heath Lawson MD
[2018-11-23] MEDS: Metoprolol Succinate 25 mg XL Tab PO SCH ×2 (10:24→18:01)
--- NOTE | 2018-11-23 14:44 | NM ---
Date of service: 11/23/2018 COMPARISON: November 22, 2018. Single-view chest TECHNIQUE: 33.2 mCi technetium 99-m DTPA aerosol. 3.0 mCI technetium 99-m MAA administered intravenously. FINDINGS: VENTILATION COMPONENT: Heterogeneous ventilation. Retention of radionuclide in the tracheobronchial tree and ingestion of radionuclide in the stomach, incidental findings PERFUSION COMPONENT: Heterogeneous distribution of radionuclide. No geographic, segmental, lobar abnormalities apparent on the present examination. IMPRESSION: Low probability ventilation perfusion scan for pulmonary embolism.
[2018-11-23 14:45] LABS: INR 1.3; PROTHROMBIN TIME 14.4 SECONDS (9.4-12.5)
--- NOTE | 2018-11-23 20:59 | CP.PCM.PCO ---
<Cali Jones - Last Filed: 11/23/18 20:56> Addendum Addendum: 11/23/18 20:56 Patient does not want to leave despite discharge orders. She is complaining of chest pain which she states is different in quality to original chest pain and also c/o shortness of breath. Repeat EKG is NSR without ST or T changes, repeating troponins. Vitals are stable and patient in NAD. Heart rhythm regular on exam. Mildly tachycardic with HR in 110s, additional 25mg lopressor given for tachycardia. <Andrea Antonio - Last Filed: 11/24/18 05:25> Attending/Attestation - Attestation I have personally seen and examined this patient.: Yes I have fully participated in the care of the patient.: Yes I have reviewed all pertinent clinical information: Yes
--- NOTE | 2018-11-23 23:22 | DS ---
HISTORY OF PRESENT ILLNESS: The patient is a 78-year-old, seen and examined, came in because of shortness of breath and chest discomfort. The patient states yesterday in Dr. Han's office, she was having above mentioned symptoms, so she advised her to come to emergency room. She has been placed in observation. She states she feels a lot better. No nausea or vomiting. No diarrhea. No shortness of breath. No chest pain. PHYSICAL EXAMINATION: VITAL SIGNS: She is afebrile, pulse 86, respirations 18, and blood pressure 145/82. LUNGS: Bilateral fair airflow. No rhonchi or crackle. HEART: S1 and S2 audible. ABDOMEN: Soft and nontender. No rebound. No guarding. NEUROLOGIC: The patient is awake and alert, able to communicate. LABORATORY DATA: Her sodium 140, potassium 4.3, chloride 101, CO2 of 32, BUN 28, creatinine 1.4, and blood sugar of 114. Three sets of cardiac enzymes are negative. Thyroid profile is negative. Urinalysis is unremarkable. Bilateral leg Doppler is pending and V/Q scan is pending. ASSESSMENT: 1. Chest pain seems to be noncardiac, rule out pulmonary embolism as per Cardiology input. 2. History of paroxysmal atrial fibrillation. 3. Leukopenia. 4. History of deep venous thrombosis. 5. History of coronary artery disease. PLAN: We will follow up V/Q scan. Follow up leg Doppler. We will follow up PT/INR and determine about her dose of Coumadin. Once above workup is available, we will make discharge plan. Angela Hernandez MD
[2018-11-24 05:25] VITALS: O2SAT 98
--- NOTE | 2018-11-24 05:30 | CP.PCM.PN ---
Subjective - Date & Time of Evaluation Date of Evaluation: 11/24/18 Time of Evaluation: 05:26 - Subjective Subjective: Patient was seen at bedside earlier. Has no complaints. Denies chest pain, sob, nausea, palpitation, sweating. Medical record was reviewed. 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 She had heart rate of 120's, for which lopressor 25 mg PO x 1 was ordered by resident physician. Heart rate now is 92/min. She has PMH of Rheumatic fever ,paroxysmal atrial fibrillation, CAD,HT N,DVT,renal insufficiency. Objective - Vital Signs/Intake and Output Vital Signs (last 24 hours): Temp Pulse Resp BP Pulse Ox 98.0 F 85 18 129/79 98 11/24/18 05:24 11/24/18 05:25 11/24/18 05:24 11/24/18 05:24 11/24/18 05:24 Intake and Output: 11/23/18 11/24/18 18:59 06:59 Intake Total 700 240 Balance 700 240 - Medications Medications: Current Medications Aspirin (Ecotrin) 81 mg PO DAILY [facility] Last Admin: 11/23/18 10:24 Dose: 81 mg Metoprolol Succinate (Toprol Xl) 25 mg PO BID [facility] Last Admin: 11/23/18 18:01 Dose: 25 mg Oxycodone/Acetaminophen (Percocet 5/325 Mg Tab) 1 tab PO BID PRN PRN Reason: Pain, moderate (4-7) Stop: 11/25/18 19:28 Last Admin: 11/24/18 03:58 Dose: 1 tab Tizanidine HCl (Zanaflex) 4 mg PO DAILY [facility] Last Admin: 11/23/18 10:24 Dose: 4 mg Warfarin Sodium (Coumadin) 7.5 mg PO 1800 [facility]; Protocol Last Admin: 11/23/18 18:01 Dose: 7.5 mg - Labs Labs: 11/22/18 14:30 11/23/18 06:30 PT 14.4 SECONDS (9.4-12.5) H 11/23/18 14:30 INR 1.30 11/23/18 14:30 APTT 31.1 Seconds (26.9-38.3) 11/22/18 14:30 - Constitutional Appears: Well, No Acute Distress - Head Exam Head Exam: ATRAUMATIC, NORMAL INSPECTION, NORMOCEPHALIC - Eye Exam Eye Exam: Normal appearance - ENT Exam ENT Exam: Normal External Ear Exam - Neck Exam Neck Exam: Normal Inspection - Respiratory Exam Respiratory Exam: NORMAL BREATHING PATTERN - Cardiovascular Exam Cardiovascular Exam: absent: JVD - GI/Abdominal Exam GI & Abdominal Exam: absent: Distended - Rectal Exam Rectal Exam: Deferred - Exam Additional comments: Deffered. - Extremities Exam Extremities Exam: Normal Inspection - Back Exam Back Exam: NORMAL INSPECTION - Neurological Exam Neurological Exam: Alert, Awake, Oriented x3 - Psychiatric Exam Psychiatric exam: Normal Affect, Normal Mood - Skin Skin Exam: Normal Color Assessment and Plan - Assessment and Plan (Free Text) Assessment: Sinus tachycardia. HTN. Chest pain. Dyspnea. History rheumtic fever. CAD History atrial fibrillation. History DVT. Plan: Lopressor 25 mg po x 1. EKG-NSR,No ST T changes. Troponin-<0.01. Continue present management as per PMD.
[2018-11-24] MEDS: Metoprolol Succinate 25 mg XL Tab PO SCH (09:16)
--- NOTE | 2018-11-24 10:13 | CP.PCM.PCO ---
Physician Communication Note - Physician Communication Note Physician Communication Note: cardiology cleared PT for D/C home, Echo completed f/u results outpatient
--- NOTE | 2018-11-24 12:30 | PN ---
DATE: 11/24/2018 SUBJECTIVE: The patient is seen lying in bed, on telemetry. She was originally scheduled for discharge last evening but complained of chest pain. EKG showed no changes and cardiac enzymes are negative. She was sent for a VQ scan yesterday which was low probability for pulmonary embolus, lower extremity ultrasound showed no evidence of deep vein thrombosis either. She states that her pain is sharp and brought on by change in position. It lasts for several seconds. CURRENT MEDICATIONS: Include warfarin, Ecotrin, Toprol XL, and Zanaflex. OBJECTIVE: GENERAL: She is an elderly woman who is comfortable at the present time. VITAL SIGNS: Blood pressure 130/80 with pulse of 86 and sinus, respirations are 14. She is afebrile. HEENT: No JVD. CHEST: Clear to auscultation and percussion. HEART: No pathological gallops noted. ABDOMEN: Soft, nontender with bowel sounds. EXTREMITIES: No edema. Of note, she does have pinpoint tenderness in the left parasternal region with deep palpation. She states this reproduces her pain. DIAGNOSTIC DATA: Electrocardiogram unremarkable. Cardiac enzymes negative. IMPRESSION: 1. Chest pain, appears most consistent with musculoskeletal cause, doubt cardiac symptoms as it is extremely atypical and reproducible with palpation. Her prior catheterization three years ago revealed 80% ostial diagonal branch stenosis of a [id number] size branch and no significant coronary disease elsewhere. Her ejection fraction was normal. A stress test performed in 03/2018 showed no significant ischemia. 2. Exertional dyspnea, should consider followup pulmonary evaluation. 3. History of prior deep vein thrombosis and pulmonary embolism, remains on chronic anticoagulant therapy. 4. Rest of problems as noted. RECOMMENDATIONS: From a cardiac standpoint, she is stable for discharge home at this time. Outpatient pulmonary evaluation should be considered. No further cardiac workup appears necessary at this time. I will be happy to follow and provide ongoing outpatient followup as needed. Heath Lawson MD
[2018-11-24 12:53] LABS: INR 1.71; PROTHROMBIN TIME 19.3 SECONDS (9.4-12.5)
[2018-11-24 14:33] VITALS: BP 127/79; PULSE 103; RESP 19; TEMP 97.5
--- NOTE | 2018-11-24 16:30 | CARD ---
APPROVED REPORT Date of service: 11/23/2018 EKG Measurement Heart [id number] <Conclusion> Poor data quality, interpretation may be adversely affected Normal sinus rhythm Minimal voltage criteria for LVH, may be normal variant
--- NOTE | 2018-11-24 18:23 | CARD ---
APPROVED REPORT Date of service: 11/24/2018 EXAM: Two-dimensional and M-mode echocardiogram with Doppler and color Doppler. INDICATION Chest Pain 2D DIMENSIONS Left Atrium (2D)3.4 (1.6-4.0cm)IVSd1.3 (0.7-1.1cm) LVDd4.7 (3.9-5.9cm)PWd1.1 (0.7-1.1cm) LVDs3.9 (2.5-4.0cm)FS (%) 17.5 % LVEF (%)37.0 (>50%) M-Mode DIMENSIONS Aortic Root3.40 (2.2-3.7cm)Aortic Cusp Exc.1.80 (1.5-2.0cm) Aortic Valve AoV Peak Jkraobfz880.0cm/Onelia Peak GR.5mmHg Mitral Valve MV E Verjsiby19.0cm/sMV A Uopshkza16.5cm/sE/A ratio0.4 TDI E/Lateral E'0.0E/Medial E'0.0 Tricuspid Valve TR Peak [id number]/sRAP [id number] Peak Gr.26mmHg [id number] LEFT VENTRICLE The left ventricle is normal size. LV Anterior Wall is Hypokinetic. Lv Systoluic Function Decreased. LV Ej.Fr: 37-40%. RIGHT VENTRICLE The right ventricle is normal size. The right ventricular systolic function is normal. ATRIA The left atrium size is normal. During Systole Atrial Septal Wall Bulges towards Lt Atrium. The right atrium size is normal. AORTIC VALVE The aortic valve is normal in structure. There is trace aortic regurgitation. MITRAL VALVE The mitral valve is normal in structure. TRICUSPID VALVE The tricuspid valve is normal in structure. There is mild tricuspid regurgitation.RVSP: 36mm Hg. PULMONIC VALVE Mild Pulmonic Regurge Present. PERICARDIAL EFFUSION There is no pericardial effusion. <Conclusion> The left ventricle is normal size. LV Septum shows Mild Hypertrophy. LV Anterior Wall is Hypokinetic. Lv Systoluic Function Decreased. LV Ej.Fr: 37-40%. The right ventricle is normal size. The right ventricular systolic function is normal. The left atrium size is normal. During Systole Atrial Septal Wall Bulges towards Lt Atrium. The right atrium size is normal. The aortic valve is normal in structure. There is trace aortic regurgitation. The mitral valve is normal in structure. The tricuspid valve is normal in structure. There is mild tricuspid regurgitation.RVSP: 36mm Hg. The tricuspid valve is normal in structure. There is mild tricuspid regurgitation.RVSP: 36mm Hg. Mild Pulmonic Regurge Present. There is no pericardial effusion.
--- NOTE | 2018-11-24 23:54 | DS ---
HISTORY OF PRESENT ILLNESS: The patient is a 78-year-old was scheduled to be discharged last night, but she started to have chest pain and shortness of breath. Her EKG done with no significant changes, so she stayed overnight. PHYSICAL EXAMINATION: GENERAL: Today; she is awake and alert, able to communicate, and able to ambulate. VITAL SIGNS: She is afebrile, pulse 88, respirations 18, and blood pressure 129/79. LUNGS: Bilateral fair airflow. No rhonchi or crackle. HEART: S1 and S2 audible. ABDOMEN: Soft and nontender. No rebound. No guarding. NEUROLOGICAL: The patient is awake and alert, able to communicate. LABORATORY DATA: Her PT 14.4 and INR 1.30. Chemistry; sodium 140, potassium 4.3, chloride 101, CO2 of 32, BUN 28, creatinine 1.4, and blood sugar 114. LFTs are within normal limits. Thyroid profile is okay. Four sets of cardiac enzymes are negative. Lung scan is negative. Echocardiogram is pending. Bilateral leg Doppler is negative. ASSESSMENT: 1. Noncardiac chest pain. 2. History of deep vein thrombosis. 3. History of paroxysmal atrial fibrillation. 4. Coronary artery disease, had cardiac catheterization done two to three years ago was unremarkable. PLAN: The patient is cleared by Cardiology and can be discharged home on aspirin, metoprolol 25 mg twice a day, tizanidine as needed, and she will resume her Coumadin. She was subtherapeutic yesterday. Since she is discharged by Cardiology, can be discharged after we have PT and INR results available. I will order for one stat PT and INR to determine the dose of her Coumadin today and accordingly she will be discharged. Angela Hernandez MD
== END 2018-11-24 16:36 | disposition home or self-care (01) ==
LOC: ED 13:52 → ERH 16:01 → INTOOBSV 16:19 → UNDOADMOB 16:19 → ERH 20:55 → 2RSO 22:20
PROVIDERS: ADMIT Internal Medicine; ATTEND Internal Medicine
DX: R07.89 Other chest pain (principal); I10 Essential (primary) hypertension; I48.0 Paroxysmal atrial fibrillation; D50.9 Iron deficiency anemia, unspecified; G62.9 Polyneuropathy, unspecified; I25.10 Atherosclerotic heart disease of native coronary artery without angina pectoris; Z86.711 Personal history of pulmonary embolism; Z79.01 Long term (current) use of anticoagulants; Z86.718 Personal history of other venous thrombosis and embolism; Z87.11 Personal history of peptic ulcer disease; Z96.642 Presence of left artificial hip joint
CPT/HCPCS: 36415; 71045; 78582; 80053; 80061; 81001; 82550; 82728; 83540; 83550; 83615; 83735; 83880; 84439; 84443; 84484; 85025; 85610; 85730; 93005; 93306; 93970; 99284; G0378